=== PATIENT | male | born 1995 | race African-American/Black ===

== ENCOUNTER 2021-07-11 00:17 | Emergency (ER) | payer SELFPAY ==
[~2021-07-11] VITALS: Ht 175.3 cm; Wt 72.6 kg
[2021-07-11] MEDS ORDERED: PHENYLEPHRINE HCL 1% 10 MG/ML VIAL ONE (00:39)
[2021-07-11] MEDS ORDERED: LIDOCAINE 1% W/EPINEPHRINE 20 ML VIAL ONE (00:39)
[2021-07-11 02:43] VITALS: BP 129/75
[2021-07-11] MEDS ORDERED: PHENYLEPHRINE 10MG/ML VIAL 40 MG in DEXTROSE 5% 250ML 250 ML IV STA (02:54)
[2021-07-11] MEDS ORDERED: LIDOCAINE HCL 1% LOCAL INJ 20 ML VIAL INJ ONE (03:00)
== END 2021-07-11 01:58 | disposition home or self-care (01) ==
LOC: ER 00:46
DX: N48.30 Priapism, unspecified (principal); K59.00 Constipation, unspecified; F32.A Depression, unspecified; Z79.899 Other long term (current) drug therapy; F17.200 Nicotine dependence, unspecified, uncomplicated; Z71.6 Tobacco abuse counseling
CPT/HCPCS: 99284; J2370